=== PATIENT | male | born 1950 | race Caucasian/White ===

== ENCOUNTER 2021-03-17 16:14 | Outpatient (REF) | payer MEDICARE, SELFPAY ==
[2021-03-17 18:09] LABS: Basophils Percent Auto 0.3 % (0-2); Eosinophils Absolute Auto 0.2 X10*3/uL (0.0-0.4); Eosinophils Percent Auto 1.1 % (0-4); Hematocrit 44.8 % (42-52); Hemoglobin 15.1 g/dl (14.0-18.0); Imm Gran Abs Auto 0.09 X10*3/uL (0.00-0.03); Imm Gran Pct Auto 0.6 % (0.0-0.4); Lymphocytes Percent Auto 6.9 % (20-40); MANUAL DIFF FLAG SCAN; Mean Corpuscular HGB Conc 33.7 g/dl (31.0-36.0); Mean Corpuscular Hemoglobin 29.9 pg (27.0-33.0); Mean Corpuscular Volume 88.7 fL (80-98); Mean Platelet Volume 10.6 fL (9.4-12.4); Monocytes Absolute Auto 1.5 X10*3/uL (0.1-1.2); Monocytes Percent Auto 10.8 % (2-11); Neutrophils Absolute Auto 11.3 X10*3/uL (2.0-8.3); Neutrophils Percent Auto 80.3 % (45-73); Platelet Count 182 X10*3/uL (160-400); Red Blood Count 5.05 X10*6/uL (4.60-5.80); Red Cell Distribution Width 13.5 % (11.0-16.0); SCAN SMEAR FLAG 1; White Blood Count 14.1 X10*3/uL (4.8-10.8)
[2021-03-17 18:16] LABS: Alanine Aminotransferase 24 U/L (0-40); Albumin Level 3.8 g/dL (3.5-5.0); Alkaline Phosphatase 77 U/L (39-117); Anion Gap 13 (12-20); Aspartate Amino Transferase 23 U/L (5-37); Bilirubin Total 0.6 mg/dL (0.0-1.0); Blood Urea Nitrogen 20 mg/dL (9-16); Calcium 8.8 mg/dL (8.4-10.2); Carbon Dioxide 29 mmol/L (22-29); Chloride 99 mmol/L (96-108); Estimated Glomerular Filt Rate > 60; Glucose Random 104 mg/dL (60-115); Potassium 3.3 mmol/L (3.3-5.1); Sodium 138 mmol/L (135-145); Total Protein 6.2 g/dL (6.5-8.0)
[2021-03-17 18:19] LABS: Influenza A PCR NEGATIVE (Negative); Influenza B PCR NEGATIVE (Negative); Resp Syncy Virus RNA Qual PCR NEGATIVE (Negative); SARS COV2 PCR INHOUSE NEGATIVE (Negative)
[2021-03-17 18:36] LABS: SLIDE REVIEW VERIFIED
[2021-03-18 10:59] LABS: CDIFF Ag Negative (Negative); CDIFF Internal ctrl Dots and bkg OK (V); CDiff Toxin Negative (Negative)
== END 2021-03-17 16:15 | disposition home or self-care (01) ==
LOC: HO.LAB 16:14
PROVIDERS: PCP Internal Medicine; Visit Provider Internal Medicine
DX: R19.7 Diarrhea, unspecified (principal); N40.0 Benign prostatic hyperplasia without lower urinary tract symptoms; R53.83 Other fatigue; Z96.0 Presence of urogenital implants
CPT/HCPCS: 0241U; 36415; 80053; 85025; 87324; 87449

== ENCOUNTER 2021-05-25 14:21 | Outpatient (REF) | payer MEDICARE, SELFPAY ==
--- NOTE | ~2021-05-25 | XR_ITS ---
EXAMINATION: XR SHOULDER, LEFT CLINICAL INFORMATION: Left shoulder pain. COMPARISON: None TECHNIQUE: AP external rotation, Grashey, scapular Y, and axillary views of the left shoulder. FINDINGS: There is loss of left glenohumeral joint space. AC joint space is maintained somewhat normal. No fracture, loose bodies or periarticular spurring seen. The soft tissues are normal. XR/XR shoulder LT min 2V IMPRESSION: Minimal degenerative arthritic changes left glenohumeral joint. No visible acute fracture or dislocation seen.
== END 2021-05-25 14:22 | disposition home or self-care (01) ==
LOC: HO.XRAY 14:21
PROVIDERS: PCP Internal Medicine; Visit Provider Internal Medicine
DX: M25.512 Pain in left shoulder (principal)
CPT/HCPCS: 73030

== ENCOUNTER 2023-08-09 09:50 | Outpatient (REF) | payer MEDICARE, SELFPAY | END 2023-08-09 09:51 | disposition home or self-care (01) | LOC: HO.LAB 09:50 | PROVIDERS: PCP Internal Medicine; Visit Provider Internal Medicine | DX: N40.0 Benign prostatic hyperplasia without lower urinary tract symptoms (principal); J45.909 Unspecified asthma, uncomplicated; Z87.442 Personal history of urinary calculi; Z82.49 Family history of ischemic heart disease and other diseases of the circulatory system; Z12.5 Encounter for screening for malignant neoplasm of prostate | CPT/HCPCS: 36415; 80053; 80061; 81001; 84153; 85025 ==

== ENCOUNTER 2023-11-22 13:51 | Outpatient (REF) | payer MEDICARE, SELFPAY ==
[2023-11-22 15:32] LABS: Cholesterol 158 mg/dL (<200); HDL Cholesterol 37 mg/dL (>40); LDL Cholesterol Calculated 109 mg/dL (<100); Triglycerides 62 mg/dL (<150)
== END 2023-11-22 13:52 | disposition home or self-care (01) ==
LOC: HO.LAB 13:51
PROVIDERS: PCP Internal Medicine; Visit Provider Internal Medicine
DX: E78.00 Pure hypercholesterolemia, unspecified (principal)
CPT/HCPCS: 36415; 80061

== ENCOUNTER 2024-07-21 13:22 | Outpatient (AMB) | payer MEDICARE, SELFPAY ==
--- NOTE | 2024-07-21 13:28 | A.OFFVIS_ITS ---
Vital Signs 07/21/24 13:31 Height 5 ft 9 in Weight 167 lb 8.821 oz BMI 24.7 BP 129/66 Blood Pressure Location Lt brachial Position Sitting Pulse 62 Intake Visit Reasons: Colorectal screening Intake Note: New patient in office today for colonoscopy screening. CC: Patient denies having any GI symptoms or concerns today. Patient states that he had a Cologuard done that it came back positive. 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 Accompanied by: Self / Same As Patient Allergies cat dander [CAT DANDER] Allergy (Unknown, Verified 07/21/24 13:36) UNKNOWN dog dander [DOG DANDER] Allergy (Unknown, Verified 07/21/24 13:36) UNKNOWN feathers Allergy (Unknown, Verified 07/21/24 13:36) Unknown grass pollen Allergy (Unknown, Verified 07/21/24 13:36) Unknown levofloxacin [From LEVAQUIN] Allergy (Unknown, Verified 07/21/24 13:36) UNKNOWN mold [MOLD] Allergy (Unknown, Verified 07/21/24 13:36) UNKNOWN Penicillins [PENICILLINS] Allergy (Unknown, Verified 07/21/24 13:36) UNKNOWN pollen extracts [POLLEN] Allergy (Unknown, Verified 07/21/24 13:36) UNKNOWN tobacco smoke Allergy (Severe, Uncoded 07/21/24 13:36) asthma HPI HPI Colorectal screening: Details: 73-year-old male here for preprocedural meeting to discuss a screening colonoscopy. He is referred by richard Ramos. PMX Asthma Cardiomyopathy Presence of urinary device Nontoxic goiter Allergic rhinitis BPH Olecranon bursitis * SURGICAL HISTORY Left inguinal hernia repair Tonsillectomy TURP Colonoscopy -2003, [facility] Dermal cyst neck * ALLERGIES Levaquin Mold Penicillin * MEDITECH LABS: None since 08/2023 TODAY'S VISIT Apparently the patient had a positive Cologuard under his PCPs care. There are no prior problems with anesthesia or sedation. No ID problems. His asthma is well controlled as is his cardiomyopathy. No FHX crc or polyps. [facility] Surgical History H/O transurethral resection of prostate History of tonsillectomy H/O inguinal hernia repair H/O colonoscopy Family History Father Esophageal cancer Mother Breast cancer Brother Skin cancer Paternal Grandfather Cancer Social History Alcohol intake: former Comment: Quit 1985 Patient Tobacco Use Status: Never used Tobacco Review of Systems Const Denies fatigue, Denies fever(s), Denies night sweats, Denies poor appetite and Denies weight loss ENT Reports Normal hearing present, Denies dental pain, Denies dysphagia, Denies hearing loss, Denies mouth pain, Denies odynophagia, Denies throat swelling, Denies tongue swelling and Reports other (Dentition adequate) Card Reports no additional complaints Resp Reports no additional complaints GI Details: Denies abdominal pain, Denies melena, Denies bloating, Denies hematochezia, Denies constipation, Denies GI cramping, Denies dysphagia, Denies excessive flatus, Denies early satiety, Denies heartburn, Denies diarrhea, Denies nausea, Denies odynophagia, Denies vomiting and Denies hematemesis Skin/Breast Denies pruritus, Denies lesions, Denies rash and Denies jaundice Neuro Reports Normal hearing present and Denies Abnormal speech present Endo Denies fatigue Aller/Immun Denies throat swelling and Denies tongue swelling Physical Exam Vital Signs: Last Vital Signs Pulse 62 07/21/24 13:31 BP 129/66 07/21/24 13:31 BMI result Body Mass Index 24.7 Const General: cooperative, no acute distress, well developed and well groomed Nutritional Appearance: average body habitus and well nourished Orientation/consciousness: oriented to person, oriented to place and oriented to time Limitations: No language barrier HEENT Head: Yes normocephalic and Yes atraumatic Eyes General: appearance normal, both eyes and all related structures Pupils: Equal, round and reactive pupils present Neck Neck: Yes normal visual inspection and Yes no lymphadenopathy Thyroid: Thyroid normal Resp Effort & Inspection: normal respiratory effort and able to speak in complete sentences Auscultation: clear to auscultation bilaterally Cardio Rate: regular rate Rhythm: regular rhythm Heart sounds: Normal, physiologic split S2 sound present Peripheral pulses: radial pulses present and posterior tibial pulses present GI Inspection: No distended and No Abdominal panniculus present Palpation (GI): Soft to palpation, nontender, no guarding, not rigid and No hepatosplenomegaly present Percussion: Yes normal to percussion Auscultation: normal bowel sounds Rectal Exam - Male: Yes deferred Skin General skin exam: no rashes or lesions noted, turgor normal, skin not dry, no jaundice, No spider nevi and no striae Rashes: no rashes Nails: normal Neuro General: oriented to person, oriented to place and oriented to time Cranial nerves: Yes Equal, round and reactive pupils present and Yes Normal hearing present Speech: No Abnormal speech present Extrem General: Yes normal to inspection, No clubbing, No cyanosis and No edema Psych Appearance: grossly normal and well kempt Mental Status: mental status grossly normal Speech and movement: Normal speech and movement present Affect: normal affect Attitude: cooperative Thought process: Normal thought process present and not confabulating Thought content: Normal thought content present Insight: Fair insight present (Psych) Judgement: Fair judgement present (Psych) Assessment & Plan Assessment & Plan (1) Positive colorectal cancer screening using DNA-based stool test: Code(s): R19.5 - Other fecal abnormalities (2) Pre-op examination: Code(s): Z01.818 - Encounter for other preprocedural examination Category: Medical Plan Apparently the patient had a positive Cologuard under his PCPs care. There are no prior problems with anesthesia or sedation. No ID problems. His asthma is well controlled as is his cardiomyopathy. No FHX crc or polyps. Orders: Orders Comprehensive Met. Panel 07/21/24 R19.5 - Other fecal abnormalities Complete Blood Count Auto Diff 07/21/24 R19.5 - Other fecal abnormalities Colonoscopy - GI Use Only 07/21/24 R19.5 - Other fecal abnormalities Medications: New bisacodyl (Dulcolax (bisacodyl)) 10 mg (2 x 5 mg) PO BEDTIME 4 tabs 0RF 2 days peg 3350-electrolytes 236-22.74-6.74 -5.86 gram (Golytely) until fecal effluent is clear; do not exceed a total volume of 2,000 mL 240 mL PO Q10M 4,000 mL 0RF 1 day Z12.11 - Encounter for screening for malignant neoplasm of colon Coding Level of Care Code New Pt Level 3 (14086) Diagnoses Positive colorectal cancer screening using DNA-based stool test R19.5 Pre-op examination Z01.818
[2024-07-21 13:31] VITALS: BP 129/66; PULSE 62; BMI 24.7
== END 2024-07-21 14:30 | disposition home or self-care (01) ==
PROVIDERS: PCP Internal Medicine; Visit Provider Nurse Practitioner
DX: R19.5 Other fecal abnormalities (principal); Z01.818 Encounter for other preprocedural examination
CPT/HCPCS: 99203

== ENCOUNTER 2024-07-21 13:22 | Outpatient (REF) | payer MEDICARE, SELFPAY ==
[2024-07-21 14:58] LABS: MANUAL DIFF FLAG NO
[2024-07-21 15:14] LABS: Basophils Absolute Auto 0.1 X10*3/uL (0.0-0.2); Basophils Percent Auto 0.9 % (0-2); Eosinophils Absolute Auto 0.6 X10*3/uL (0.0-0.4); Hematocrit 45.3 % (42.0-52.0); Imm Gran Abs Auto 0.01 X10*3/uL (0.00-0.03); Imm Gran Pct Auto 0.2 % (0.0-0.4); Lymphocytes Absolute Auto 1.4 X10*3/uL (1.2-4.9); Lymphocytes Percent Auto 25.5 % (20-40); Mean Corpuscular HGB Conc 33.1 g/dl (31.0-36.0); Mean Corpuscular Hemoglobin 30.1 pg (27.0-33.0); Mean Platelet Volume 10.6 fL (9.4-12.4); Monocytes Absolute Auto 0.6 X10*3/uL (0.1-1.2); Monocytes Percent Auto 10.9 % (2-11); Neutrophils Absolute Auto 2.8 x10*3/uL (2.0-8.3); Neutrophils Percent Auto 51.5 % (45-73); Platelet Count 164 X10*3/uL (160-400); Red Blood Count 4.98 X10*6/uL (4.60-5.80); Red Cell Distribution Width 12.9 % (11.0-16.0); White Blood Count 5.3 X10*3/uL (4.8-10.8)
[2024-07-21 15:53] LABS: Alanine Aminotransferase 19 U/L (0-40); Alkaline Phosphatase 102 U/L (39-117); Anion Gap 9 (12-20); Aspartate Amino Transferase 25 U/L (5-37); Bilirubin Total 0.8 mg/dL (0.0-1.0); Blood Urea Nitrogen 17 mg/dL (9-16); Calcium 9.6 mg/dL (8.4-10.2); Carbon Dioxide 31 mmol/L (22-29); Chloride 106 mmol/L (96-108); Estimated Glomerular Filt Rate > 60; Glucose Random 100 mg/dL (60-115); Potassium 4.5 mmol/L (3.3-5.1); Sodium 141 mmol/L (135-145); Total Protein 6.5 g/dL (6.5-8.0)
== END 2024-07-21 13:23 | disposition home or self-care (01) ==
LOC: HO.LAB 13:22
PROVIDERS: PCP Internal Medicine; Visit Provider Nurse Practitioner
DX: Z01.818 Encounter for other preprocedural examination (principal); R19.5 Other fecal abnormalities
CPT/HCPCS: 36415; 80053; 85025; 99202

== ENCOUNTER 2024-08-14 13:59 | Outpatient (REF) | payer MEDICARE, SELFPAY ==
--- NOTE | ~2024-08-14 | XR_ITS ---
EXAMINATION: XR CERVICAL SPINE 6 VIEWS CLINICAL INFORMATION: Neck pain. COMPARISON: XR Cervical spine 05/18/2010 TECHNIQUE: 6 views of the cervical spine, inclusive of flexion and extension views, were obtained. FINDINGS: The cervical spine maintains normal alignment. Vertebral body heights are maintained. There is loss of intervertebral disc space with endplate degenerative changes, particularly at C4-C5 and C5-C6. Multilevel bilateral foraminal stenosis throughout the cervical spine. The paravertebral soft tissues are unremarkable. XR/XR cervical spine min 6V IMPRESSION: Moderate degenerative disease of the cervical spine. Electronically signed by: Nargis Aguilar MD 10/20/2024 08:13 AM [facility] Workstation: [id number]
== END 2024-08-14 14:00 | disposition home or self-care (01) ==
LOC: HO.XRAY 13:59
PROVIDERS: PCP Internal Medicine; Visit Provider Internal Medicine
DX: M54.2 Cervicalgia (principal)
CPT/HCPCS: 72052

== ENCOUNTER 2024-08-27 14:56 | Outpatient (REF) | payer MEDICARE, SELFPAY ==
[2024-08-27 15:16] LABS: MANUAL DIFF FLAG NO
[2024-08-27 15:47] LABS: Basophils Absolute Auto 0.1 X10*3/uL (0.0-0.2); Basophils Percent Auto 0.9 % (0-2); Eosinophils Absolute Auto 0.6 X10*3/uL (0.0-0.4); Eosinophils Percent Auto 8.6 % (0-4); Hematocrit 44.8 % (42.0-52.0); Hemoglobin 15.2 g/dl (14.0-18.0); Imm Gran Abs Auto 0.01 X10*3/uL (0.00-0.03); Imm Gran Pct Auto 0.2 % (0.0-0.4); Lymphocytes Absolute Auto 1.5 X10*3/uL (1.2-4.9); Lymphocytes Percent Auto 22.1 % (20-40); Mean Corpuscular HGB Conc 33.9 g/dl (31.0-36.0); Mean Corpuscular Hemoglobin 30.2 pg (27.0-33.0); Mean Corpuscular Volume 89.1 fL (80.0-98.0); Mean Platelet Volume 10.7 fL (9.4-12.4); Monocytes Absolute Auto 0.8 X10*3/uL (0.1-1.2); Monocytes Percent Auto 11.4 % (2-11); Neutrophils Absolute Auto 3.8 x10*3/uL (2.0-8.3); Neutrophils Percent Auto 56.8 % (45-73); Platelet Count 176 X10*3/uL (160-400); Red Blood Count 5.03 X10*6/uL (4.60-5.80); Red Cell Distribution Width 12.9 % (11.0-16.0); White Blood Count 6.6 X10*3/uL (4.8-10.8)
[2024-08-27 15:51] LABS: Appearance Urine Clear; Color Urine Yellow; Glucose Urine UA Negative (Negative); Leukocyte Esterase Urine Small (1+) (Negative); Nitrite Urine Negative (Negative); PH 6.5 (5.0-9.0); UMIC TRIGGER UA YES; Urine Blood Negative (Negative); Urine Ketones Negative (Negative); Urine Protein Negative (Neg-Trace)
[2024-08-27 15:54] LABS: Bacteria Urine None Seen (None Seen); Hyaline Casts Urine 0-2 /LPF (0-2); RBC Urine 0-2 /HPF (0-2); Squamous Epithelial Cell Urine 0-2 /HPF (0-2)
[2024-08-27 16:37] LABS: Alanine Aminotransferase 22 U/L (0-40); Alkaline Phosphatase 101 U/L (39-117); Anion Gap 11 (12-20); Aspartate Amino Transferase 30 U/L (5-37); Bilirubin Total 0.9 mg/dL (0.0-1.0); Blood Urea Nitrogen 20 mg/dL (9-16); Calcium 9.7 mg/dL (8.4-10.2); Carbon Dioxide 32 mmol/L (22-29); Chloride 105 mmol/L (96-108); Cholesterol 167 mg/dL (<200); Estimated Glomerular Filt Rate > 60; Glucose Random 101 mg/dL (60-115); HDL Cholesterol 49 mg/dL (>40); LDL Cholesterol Calculated 102 mg/dL (<100); Sodium 143 mmol/L (135-145); Total Protein 6.7 g/dL (6.5-8.0); Triglycerides 81 mg/dL (<150)
[2024-08-27 17:06] LABS: Prostate Specific Antigen 1.56 ng/mL (<0.05-4.0); Vitamin B12 462 pg/mL (200-900)
== END 2024-08-27 14:57 | disposition home or self-care (01) ==
LOC: HO.LAB 14:56
PROVIDERS: PCP Internal Medicine; Visit Provider Internal Medicine
DX: J45.909 Unspecified asthma, uncomplicated (principal); N40.0 Benign prostatic hyperplasia without lower urinary tract symptoms; R53.83 Other fatigue; I25.10 Atherosclerotic heart disease of native coronary artery without angina pectoris; Z12.5 Encounter for screening for malignant neoplasm of prostate
CPT/HCPCS: 36415; 80053; 80061; 81001; 82550; 82607; 84153; 85025; 86140

== ENCOUNTER 2024-12-29 19:37 | Emergency (ER) | payer MEDICARE, SELFPAY ==
--- NOTE | ~2024-12-29 | CT_ITS ---
CLINICAL HISTORY: fall with head strike CT head without contrast Comparison: None Findings: No intra-axial mass, midline shift, hydrocephalus, or acute hemorrhage. No significant atrophy-like change or white matter disease. Intracranial atherosclerosis. Mucosal thickening in the maxillary sinuses and ethmoid air cells. The orbits are within normal limits. There is no acute fracture. IMPRESSION: 1. No acute intracranial findings. This document has been electronically signed by: Kassie Yang MD on 12/29/2024 21:51:38
--- NOTE | ~2024-12-29 | XR_ITS ---
CLINICAL HISTORY: fall, limited ROM 3 view left shoulder Comparison: CR - XR SHOULDER LT MIN 2V - 05/25/2021 02:43 PM EDT Findings: Bones intact. No dislocations. Mild acromioclavicular osteoarthritis. No erosions. No radiopaque foreign body. IMPRESSION: 1. No acute findings This document has been electronically signed by: Kassie Yang MD on 12/29/2024 20:41:04
--- NOTE | ~2024-12-29 | CT_ITS ---
CLINICAL HISTORY: fall with head strike CT maxillofacial without contrast Comparison: None Findings: No acute fractures. No dislocations. Temporomandibular joints are intact. Mucosal thickening in the maxillary sinuses and ethmoid air cells, left worse than right. Orbital contents within normal limits. Visualized intracranial contents are within normal limits. No foreign bodies. IMPRESSION: 1. No acute findings. This document has been electronically signed by: Kassie Yang MD on 12/29/2024 21:49:50
--- NOTE | ~2024-12-29 | XR_ITS ---
CLINICAL HISTORY: fall, limited ROM 3 view left elbow Comparison: None Findings: No acute fractures or dislocations. No significant loss of joint space, osteophytes, or erosions. No joint effusion. No radiopaque foreign body. IMPRESSION: 1. No acute findings This document has been electronically signed by: Kassie Yang MD on 12/29/2024 20:43:02
[2024-12-29 20:02] VITALS: BP 136/58; PULSE 59; RESP 14; TEMP 36.3; O2SAT 99; BMI 25.8
--- NOTE | 2024-12-29 20:05 | ED.GENADULT ---
HPI - General Adult General Chief complaint: Fall Stated complaint: fell on ice couple days/lft arm pain/lft ear echos Time Seen by Provider: 12/29/24 23:59 Source: patient Limitations: no limitations History of Present Illness ED Provider: Luna Kiser PA-C HPI narrative: 74-year-old male with a history of BPH, cardiomyopathy, asthma, kidney stones who presents after fall. Patient states he was going to get his mail, he subsequently slipped and fell, striking his head. There was no loss consciousness, the patient is not on a blood thinner. patient states he had minimal bleeding from his nose. The patient has a associated left elbow and shoulder pain. The patient was ambulatory, he drove himself to the emergency department. Related Data Home Medications ?Medication ?Instructions ?Recorded ?Confirmed albuterol sulfate 90 mcg/actuation 2 inh inhalation Q6-8H PRN 07/21/24 11/17/24 aerosol inhaler Shortness Of Breath Or Wheezing Previous Rx's ?Medication ?Instructions ?Recorded bisacodyl 5 mg tablet,delayed 20 mg (4 x 5 mg) PO ONCE 1 day #4 11/19/24 release (Dulcolax (bisacodyl)) tabs peg 3350-electrolytes 236 240 ml PO Q10M #4,000 mL 11/19/24 gram-22.74 gram-6.74 gram-5.86 gram solution Allergies Allergy/AdvReac Type Severity Reaction Status Date / Time cat dander [CAT DANDER] Allergy Unknown UNKNOWN Verified 12/29/24 20:08 dog dander [DOG DANDER] Allergy Unknown UNKNOWN Verified 12/29/24 20:08 feathers Allergy Unknown Unknown Verified 12/29/24 20:08 grass pollen Allergy Unknown Unknown Verified 12/29/24 20:08 levofloxacin [From LEVAQUIN] Allergy Unknown UNKNOWN Verified 12/29/24 20:08 mold [MOLD] Allergy Unknown UNKNOWN Verified 12/29/24 20:08 Penicillins [PENICILLINS] Allergy Unknown UNKNOWN Verified 12/29/24 20:08 pollen extracts [POLLEN] Allergy Unknown UNKNOWN Verified 12/29/24 20:08 tobacco smoke Allergy Severe asthma Uncoded 12/29/24 20:08 Review of Systems Review of Systems: Yes all other systems are reviewed and are negative Constitutional: Constitutional: Denies fatigue, Denies fever(s) and Denies headache(s) ENT: Denies dizziness, Denies headache(s) and Denies neck pain Cardiovascular: Cardiovascular: Denies chest pain, Denies syncope and Denies dyspnea Respiratory: Respiratory: Denies cough and Denies dyspnea Gastrointestinal: Gastrointestinal: Denies abdominal pain Musculoskeletal: Musculoskeletal: Denies back pain and Denies neck pain Neurologic: Denies dizziness, Denies syncope and Denies headache(s) Endocrine: Endocrine: Denies fatigue PMFSH Past Medical History Attestation statement: The following information was validated with the patient. Surgical History H/O transurethral resection of prostate History of tonsillectomy H/O inguinal hernia repair H/O colonoscopy Family History Family History Father Esophageal cancer Mother Breast cancer Brother Skin cancer Paternal Grandfather Cancer Social History Social History Are you a primary student career development specialist to a significant other at home: No Do you presently have visiting nurse or other home services: No Alcohol intake: former Comment: Quit 1986 Patient Tobacco Use Status: Never used Tobacco Smoked in Last 30 Days: No Use of substances other than those prescribed or required for medical reasons: No Advance Directives: No Do you have a plan to hurt others: No Plan Physical Exam ED Vital Signs: Vital Signs - 24 hr 12/29/24 20:02 12/30/24 00:19 Temperature 97.4 F 97.9 F Pulse Rate 59 69 Respiratory Rate 14 14 Blood Pressure 136/58 L 135/73 Pulse Oximetry 99 100 Oxygen Delivery Method Room Air Room Air BMI result Body Mass Index 25.8 Const Other: Alert well-appearing no sign of head trauma on exam Orientation/consciousness: patient oriented x3 Resp Effort & Inspection: normal respiratory effort Cardio Other: normal peripheral perfusion Skin Other: warm dry no rash Neuro General: patient oriented x3, gait normal, no focal motor deficits and CN's II-XI intact bilaterally Extrem Other: able to flex and extend from the elbow, full range of motion of the shoulder no deformity Psych Other: cooperative Course Course Course Narrative: This is a rapid medical exam performed by Carola Munoz NP: Additional HPI, ROS, PE not included below will be deferred to primary provider. Patient is a 74-year-old male presenting with complaint of ongoing left cheek and left shoulder/arm pain after a fall on 12/21. Denies loss of consciousness, is not anticoagulated. Reports decreased ROM to shoulder. Had tinnitus to left ear which he states has now changed to an echo sensation. Plan: CT head and facial bones, shoulder xray, elbow xray Medical Decision Making Medical Decision Making MDM Narrative: 74-year-old male with a history of BPH, cardiomyopathy, asthma, kidney stones who presents after fall. Patient states he was going to get his mail, he subsequently slipped and fell, striking his head/face. There was no loss consciousness, the patient is not on a blood thinner. patient states he had minimal bleeding from his nose. The patient has a associated left elbow and shoulder pain. The patient was ambulatory, he drove himself to the emergency department. no relevant chronic issues History: Per patient I have considered the following differential diagnoses: Fracture, dislocation, intracranial hemorrhage, Facial bone fracture Plan: X-rays of the shoulder and elbow, CT scans of the brain and max face were obtained from triage. Everything is unremarkable. I have independently reviewed the following tests: X-ray left elbow: 3 view left elbow Comparison: None Findings: No acute fractures or dislocations. No significant loss of joint space, osteophytes, or erosions. No joint effusion. No radiopaque foreign body. IMPRESSION: 1. No acute findings X-ray left shoulder: 3 view left shoulder Comparison: CR - XR SHOULDER LT MIN 2V - 05/25/2021 02:43 PM EDT Findings: Bones intact. No dislocations. Mild acromioclavicular osteoarthritis. No erosions. No radiopaque foreign body. IMPRESSION: 1. No acute findings CT brain: Findings: No intra-axial mass, midline shift, hydrocephalus, or acute hemorrhage. No significant atrophy-like change or white matter disease. Intracranial atherosclerosis. Mucosal thickening in the maxillary sinuses and ethmoid air cells. The orbits are within normal limits. There is no acute fracture. IMPRESSION: 1. No acute intracranial findings. CT Max face::Findings: No acute fractures. No dislocations. Temporomandibular joints are intact. Mucosal thickening in the maxillary sinuses and ethmoid air cells, left worse than right. Orbital contents within normal limits. Visualized intracranial contents are within normal limits. No foreign bodies. IMPRESSION: 1. No acute findings. Discharge Plan Discharge Clinical Impression: Contusion Patient Disposition: Home, Self-Care Instructions: Bone Bruise (ED) Additional Instructions: x-ray of the shoulder and elbow were negative for fracture or dislocation. The CT scan of your brain was negative for intracranial bleeding or skull fracture. The CT scan of your face was negative for fracture. You have sustained a contusion. See home care instructions. Follow up with your primary care provider as needed. Prescriptions: No Action bisacodyl [Dulcolax (bisacodyl)] 5 mg tablet,delayed release (DR/EC) 20 mg PO ONCE 1 Days Qty: 4 0RF Rx Instructions: the day before colonoscopy take 2 pills at 12pm and 2 pills at 5pm with plenty of water peg 3350-electrolytes 236-22.74-6.74 -5.86 gram recon soln 240 ml PO Q10M Qty: 4000 0RF Rx Instructions: until fecal effluent is clear albuterol sulfate 90 mcg/actuation HFA aerosol inhaler 2 inh inhalation Q6-8H PRN (Reason: Shortness Of Breath Or Wheezing) Print Language: Romanian
[2024-12-30 00:19] VITALS: BP 135/73; PULSE 69; RESP 14; TEMP 36.6; O2SAT 100
[2024-12-30 01:17] VITALS: BP 135/73; PULSE 69; RESP 14; TEMP 36.6; O2SAT 100
== END 2024-12-30 01:18 | disposition home or self-care (01) ==
PROVIDERS: Emergency Provider Emergency Medicine Emergency Medical Services; PCP Internal Medicine
DX: S50.02XA Contusion of left elbow, initial encounter (principal); S00.93XA Contusion of unspecified part of head, initial encounter; M79.602 Pain in left arm; H92.02 Otalgia, left ear; R51.9 Headache, unspecified; M25.512 Pain in left shoulder; W01.0XXA Fall on same level from slipping, tripping and stumbling without subsequent striking against object, initial encounter; Y93.01 Activity, walking, marching and hiking; Y92.59 Other trade areas as the place of occurrence of the external cause; Y99.8 Other external cause status; Z79.899 Other long term (current) drug therapy
CPT/HCPCS: 70450; 70486; 73030; 73070; 99284

== ENCOUNTER → 2024-12-29 20:07 | Outpatient (BNV) | payer MEDICARE, SELFPAY | PROVIDERS: PCP Internal Medicine; Visit Provider Radiology Diagnostic Radiology | DX: S09.92XA Unspecified injury of nose, initial encounter (principal); M25.512 Pain in left shoulder; M25.522 Pain in left elbow; S09.90XA Unspecified injury of head, initial encounter; H93.2 Other abnormal auditory perceptions; W00.0XXA Fall on same level due to ice and snow, initial encounter | CPT/HCPCS: 70450; 70486; 73030; 73070 ==

== ENCOUNTER 2025-01-06 11:02 | Day surgery (SDC) | payer MEDICARE, SELFPAY ==
--- NOTE | 2025-01-05 12:08 | P.CONAN_ITS ---
Documented by User: Dipika Dave NP 01/05/25 12:09 HPI - Anesthesia Eval Consult details Narrative: 74yo M for Colonoscopy PMHx includes cardiomyopathy. Does not follow cardiology. ECHO 2017 ordered by PCP [facility]NL. [facility] Active Problems Active Problems: All Active Problems Nephrolithiasis (Acute) Olecranon bursitis (Acute) Allergic rhinitis (Acute) Nontoxic goiter (Acute) BPH (benign prostatic hyperplasia) (Acute) Cardiomyopathy (Acute) Asthma (Acute) Positive colorectal cancer screening using Cologuard test (Acute) Pre-op examination (Acute) Past Medical History Medical History Anxiety BPH (benign prostatic hyperplasia) Asthma Cardiomyopathy Nontoxic goiter Family History Family History Father Esophageal cancer Mother Breast cancer Brother Skin cancer Paternal Grandfather Cancer Surgical History Surgical History H/O lithotripsy S/P TURP H/O left inguinal hernia repair H/O transurethral resection of prostate History of tonsillectomy H/O inguinal hernia repair H/O colonoscopy Social History Social History Are you a primary pharmacist critical care to a significant other at home: No Do you presently have visiting nurse or other home services: No Alcohol intake: former Comment: Quit 1985 Patient Tobacco Use Status: Never used Tobacco Meds Allergies Allergy/AdvReac Type Severity Reaction Status Date / Time cat dander [CAT DANDER] Allergy Unknown UNKNOWN Verified 12/29/24 20:08 dog dander [DOG DANDER] Allergy Unknown UNKNOWN Verified 12/29/24 20:08 feathers Allergy Unknown Unknown Verified 12/29/24 20:08 grass pollen Allergy Unknown Unknown Verified 12/29/24 20:08 levofloxacin [From LEVAQUIN] Allergy Unknown UNKNOWN Verified 12/29/24 20:08 mold [MOLD] Allergy Unknown UNKNOWN Verified 12/29/24 20:08 Penicillins [PENICILLINS] Allergy Unknown UNKNOWN Verified 12/29/24 20:08 pollen extracts [POLLEN] Allergy Unknown UNKNOWN Verified 12/29/24 20:08 tobacco smoke Allergy Severe asthma Uncoded 12/29/24 20:08 Home Medications ?Medication ?Instructions ?Recorded ?Confirmed ?Last Taken ?Type albuterol sulfate 90 mcg/actuation 2 inh inhalation Q6-8H PRN 07/21/24 11/17/24 Unknown History aerosol inhaler Shortness Of Breath Or Wheezing Assessment and Plan Assessment Anesthesia Assessment: Chart Reviewed Documented by User: Natalia Wiggins MD 01/06/25 13:37 PMFSH Active Problems Active Problems: All Active Problems Nephrolithiasis (Acute) Olecranon bursitis (Acute) Allergic rhinitis (Acute) Nontoxic goiter (Acute) BPH (benign prostatic hyperplasia) (Acute) Cardiomyopathy (Acute) Asthma (Acute) Positive colorectal cancer screening using Cologuard test (Acute) Pre-op examination (Acute) ? H/o fluid in lungs- vague history. Patient states ok now Fell 2 weeks ago. Left sided pain. Pain Left shoulder and arm. No fracture on Xray Past Medical History Medical History Anxiety BPH (benign prostatic hyperplasia) Asthma Cardiomyopathy Nontoxic goiter Family History Family History Father Esophageal cancer Mother Breast cancer Brother Skin cancer Paternal Grandfather Cancer Family history of problems with anesthesia: No Surgical History Surgical History H/O lithotripsy S/P TURP H/O left inguinal hernia repair H/O transurethral resection of prostate History of tonsillectomy H/O inguinal hernia repair H/O colonoscopy History of Problems with Anesthesia: No Social History Social History Are you a primary pharmacist critical care to a significant other at home: No Do you presently have visiting nurse or other home services: No Alcohol intake: former Comment: Quit 1985 Patient Tobacco Use Status: Never used Tobacco Meds Allergies Allergy/AdvReac Type Severity Reaction Status Date / Time cat dander [CAT DANDER] Allergy Unknown UNKNOWN Verified 12/29/24 20:08 dog dander [DOG DANDER] Allergy Unknown UNKNOWN Verified 12/29/24 20:08 feathers Allergy Unknown Unknown Verified 12/29/24 20:08 grass pollen Allergy Unknown Unknown Verified 12/29/24 20:08 levofloxacin [From LEVAQUIN] Allergy Unknown UNKNOWN Verified 12/29/24 20:08 mold [MOLD] Allergy Unknown UNKNOWN Verified 12/29/24 20:08 Penicillins [PENICILLINS] Allergy Unknown UNKNOWN Verified 12/29/24 20:08 pollen extracts [POLLEN] Allergy Unknown UNKNOWN Verified 12/29/24 20:08 tobacco smoke Allergy Severe asthma Uncoded 12/29/24 20:08 Home Medications ?Medication ?Instructions ?Recorded ?Confirmed ?Last Taken ?Type albuterol sulfate 90 mcg/actuation 2 inh inhalation Q6-8H PRN 07/21/24 11/17/24 Unknown History aerosol inhaler Shortness Of Breath Or Wheezing Exam Height,Weight and Vital Signs: Height 5 ft 11 in Weight 82.1 kg Vital Signs Temp Pulse Resp BP Pulse Ox O2 Del Method 01/06/25 12:10 97.5 F 75 16 133/89 98 Room Air Airway Mallampati Class: II (Slghtly receding chin) TM Dist: >3cm Neck ROM: Full Loose/Missing/Broken Teeth: Yes (Missing molars. Denies broken or loose teeth) Heart: RRR Lungs: CTAB Assessment and Plan Assessment Anesthesia Assessment: Anesthesia Plan Discussed and Chart Reviewed Final Anesthetic Review Family History of Problems with Anesthesia: No History of Problems with Anesthesia: No NPO: Yes ASA Class: III Final Preanesthetic Review: No Changes in Pt Med Stat, Meds/Allgs Chart Reviewed, Consent Obtained/Reviewed and Anes Risks/Benef Reviewed Patient Risk: Intermediate Procedure Risk: Low Assessment/Block/Sedation in SS: Assess/Block/Sedation-SS Anesthetic Plan Anesthetic Plan: TIVA Disposition: Standard PACU
[2025-01-06 11:45] VITALS: BMI 25.2
[2025-01-06 12:10] VITALS: BP 133/89; PULSE 75; RESP 16; TEMP 36.4; O2SAT 98
[2025-01-06] MEDS: Lactated Ringers 1,000 ML 100 ML IVCONT (12:14)
--- NOTE | 2025-01-06 12:29 | P.HPSUR_ITS ---
Pre-Procedural Eval Section A - 24 Hr Update-Section A only Date of Service: 01/06/25 Section B - Complete if H&P > 30 days Chief Complaint: Other fecal abnormalities Relevant Family History (Specify if Yes): No Relevant Social History: None Present Medications: see Short Stay Collaborative assessment Medical History: Significant History (Anxiety BPH (benign prostatic hyperplasia) Asthma Cardiomyopathy Nontoxic goiter) History of Previous Operations: Relevant previous surgery/procedure and date(s) (H/O lithotripsy S/P TURP H/O left inguinal hernia repair H/O transurethral re section of prostate History of tonsillectomy H/O inguinal hernia repair H/O colonoscopy) Allergies: Allergies Allergy/AdvReac Type Severity Reaction Status Date / Time cat dander [CAT DANDER] Allergy Unknown UNKNOWN Verified 12/29/24 20:08 dog dander [DOG DANDER] Allergy Unknown UNKNOWN Verified 12/29/24 20:08 feathers Allergy Unknown Unknown Verified 12/29/24 20:08 grass pollen Allergy Unknown Unknown Verified 12/29/24 20:08 levofloxacin [From LEVAQUIN] Allergy Unknown UNKNOWN Verified 12/29/24 20:08 mold [MOLD] Allergy Unknown UNKNOWN Verified 12/29/24 20:08 Penicillins [PENICILLINS] Allergy Unknown UNKNOWN Verified 12/29/24 20:08 pollen extracts [POLLEN] Allergy Unknown UNKNOWN Verified 12/29/24 20:08 tobacco smoke Allergy Severe asthma Uncoded 12/29/24 20:08 Review of Systems Sugical H&P ROS: Negative: Constitution, Cardiovascular, Respiratory, Neurological, Psychiatric, Hem-Onc, Allergic/Immunologic, Gastrointestinal, Genitourinary, Musculoskeletal, Integumentary, Endocrine and Eyes/Ears/Nose/Throat Exam Surgical H&P Exam: Normal: HEENT, Normal: Heart, Normal: Lungs, Normal: Extremities, Normal: Abdomen, Normal: Skin and Normal: Neurological Plan Diagnosis/Plan: Unchanged I have reviewed the history and physical and performed a pertinent physical examination on my patient. No changes have occurred unless specified. Time Spent With Patient Time: Total time managing care of this patient today ____ minutes.
--- NOTE | 2025-01-06 13:16 | P.OPN-COLO_ITS ---
Colonoscopy Operative Note Operative Note Date of Service: 01/06/25 Narrative: Operative Information Procedure Description: Colonoscopy Indication: cologuard pos Anesthesia: MAC COLONOSCOPY Instrument: Olympus variable stiffness pediatric scope 190L Colonoscopy Monitoring: Vital signs and clinical assessment, continuous EKG monitoring, Pulse oximetry, Carbon Dioxide monitoring and blood pressure monitoring were done throughout the procedure. Colon withdrawal time was 12 minutes. Procedure: The patient was placed in the left lateral decubitis position and pre-procedure medications were administered. After a digital rectal examination of the ano-rectum, the video colonoscope was inserted into the rectum and advanced through the colon to the cecum/TI. The colonoscope was slowly withdrawn in a retrograde panoramic fashion and the colon mucosa was carefully examined including a retroflexed view of the rectum. Findings and interventions are described below. Procedure Difficulty: moderate, pressure applied, tortuous colon Findings: Terminal Ileum-normal Cecum:normal Ascending Colon: normal Transverse Colon -normal Descending Colon: semi pedunculated polyp 8-10 mm removed with cold snare Sigmoid Colon: moderate diverticulosis Rectum: Retroflexion with small internal hemorrhoids seen, grade I, 10 mm sessile polyp removed with cold snare f Anorectum - normal Intervention: cold snare Colon preparation: Hackberry Bowel Preparation Scale Right colon; 2 Transverse colon: 2 Left colon; 2 (0 = Unprepared colon segment with mucosa not seen due to solid stool that cannot be cleared. 1 = Portion of mucosa of the colon segment seen, but other areas of the colon segment not well seen due to staining, residual stool and/or opaque liquid. 2 = Minor amount of residual staining, small fragments of stool and/or opaque liquid, but mucosa of colon segment seen well. 3 = Entire mucosa of colon segment seen well with no residual staining, small fragments of stool or opaque liquid) Impression and Post Procedure Diagnosis: diverticulosis colon polyps x2 internal hemorrhoids Plan: High fiber diet leaflet Avoid straining at stool, epsom salts and sitz bath, anusol supps or cream Repeat Colonoscopy in 5 years if adenomatous polyps, 10 yrs if hyperplastic if health allows and patient desires or earlier if clinically indicated Above findings were reviewed with the patient and relevant handouts were provided if indicated.
[2025-01-06 13:23] VITALS: BP 111/57; PULSE 73; RESP 12; TEMP 36.5
[2025-01-06 13:38] VITALS: BP 141/69; PULSE 70; RESP 18; TEMP 36.6; O2SAT 98
== END 2025-01-06 14:08 | disposition home or self-care (01) ==
PROVIDERS: PCP Internal Medicine; Visit Provider Internal Medicine Gastroenterology
PROC: 0DJD8ZZ Inspection of Lower Intestinal Tract, Via Natural or Artificial Opening Endoscopic (ICD-10-PCS; CPT 45378; principal; 2025-01-06 13:00)
DX: K63.5 Polyp of colon (principal); K62.1 Rectal polyp; K56.2 Volvulus; K57.30 Diverticulosis of large intestine without perforation or abscess without bleeding; K64.0 First degree hemorrhoids; R19.5 Other fecal abnormalities; J45.909 Unspecified asthma, uncomplicated
CPT/HCPCS: 45385; 88305; J2003; J2704

== ENCOUNTER → 2025-01-06 11:02 | Outpatient (BNV) | payer MEDICARE, SELFPAY | PROVIDERS: PCP Internal Medicine; Visit Provider Internal Medicine Gastroenterology | DX: Z12.11 Encounter for screening for malignant neoplasm of colon (principal); R19.5 Other fecal abnormalities; K63.5 Polyp of colon; K57.30 Diverticulosis of large intestine without perforation or abscess without bleeding | CPT/HCPCS: 45385 ==

== ENCOUNTER 2025-02-24 09:01 | Outpatient (AMB) | payer MEDICARE, SELFPAY ==
[2025-02-24 09:03] VITALS: BP 128/70; PULSE 81; TEMP 36.1; O2SAT 99; BMI 27.1
--- NOTE | 2025-02-24 09:03 | A.OFFPC_ITS ---
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: No Accompanied by: Self / Same As Patient Allergies cat dander [CAT DANDER] Allergy (Unknown, Verified 02/24/25 09:43) UNKNOWN dog dander [DOG DANDER] Allergy (Unknown, Verified 02/24/25 09:43) UNKNOWN feathers Allergy (Unknown, Verified 02/24/25 09:43) Unknown grass pollen Allergy (Unknown, Verified 02/24/25 09:43) Unknown levofloxacin [From LEVAQUIN] Allergy (Unknown, Verified 02/24/25 09:43) UNKNOWN mold [MOLD] Allergy (Unknown, Verified 02/24/25 09:43) UNKNOWN Penicillins [PENICILLINS] Allergy (Unknown, Verified 02/24/25 09:43) UNKNOWN pollen extracts [POLLEN] Allergy (Unknown, Verified 02/24/25 09:43) UNKNOWN tobacco smoke Allergy (Severe, Uncoded 02/24/25 09:43) asthma Medication List - Last Reconciled 02/24/25 by Tay Alarcon MD albuterol sulfate 90 mcg/actuation 2 inhalations inhalation Q6-8H PRN Tobacco use date assessed: 02/24/25 Fall risk assessment: 1 Fall in past year Last assessed Fall Risk: 02/24/25 Dental Screening Dental Screen Date: 02/24/25 Did you have a dental visit in the last 12 months?: Yes Did you have a dental problem in the last 6 months where you did not have access to dental care?: No [facility] Medical History (Updated 02/24/25 @ 09:46 by Tay Alarcon MD) Tinnitus of left ear Sprain of left shoulder Anxiety BPH (benign prostatic hyperplasia) Asthma Cardiomyopathy Nontoxic goiter Surgical History H/O lithotripsy S/P TURP H/O left inguinal hernia repair H/O transurethral resection of prostate History of tonsillectomy H/O inguinal hernia repair H/O colonoscopy (~01/06/25) Family History Father Esophageal cancer Mother Breast cancer Brother Skin cancer Paternal Grandfather Cancer Social History Housing: House Are you a primary acute care certified nursing assistant to a significant other at home: No Do you presently have visiting nurse or other home services: No Alcohol intake: former Comment: Quit 1985 Patient Tobacco Use Status: Never used Tobacco e-Cigarette/Vaping Use: Never Used service: No Current occupational status: retired Cognitive needs: No Hearing needs: No Vision needs: Yes (rx glasses) Questionnaire PHQ-9 Over the last 2 weeks, how often have you been bothered by any of the following problems? 1. Little interest or pleasure in doing things: not at all 2. Feeling down, depressed, or hopeless: not at all 3. Trouble falling or staying asleep, or sleeping too much: not at all 4. Feeling tired or having little energy: not at all 5. Poor appetite or overeating: not at all 6. Feeling bad about yourself - or that you are a failure or have let yourself or your family down: not at all 7. Trouble concentrating on things, such as reading the newspaper or watching television: not at all 8. Moving or speaking so slowly that other people could have noticed. Or the opposite - being so fidgety or restless that you have been moving around a lot more than usual: not at all 9. Thoughts that you would be better off or of hurting yourself in some way: not at all Total score: 0 Source: Developed by Drs. Logan Alston, Terri Blank, Jovan Bernardo and colleagues, with an educational teena from [employer]. Thrive Questionnaire Date Thrive assessed: 02/24/25 I am a: Patient Within the past 12 months, did the food you bought not last and you didn't have the money to get more?: Never true Within the past 12 months, did you worry whether your food would run out before you got money to buy more?: Never true Do you have trouble paying for medicines?: No Do you have trouble getting transportation to medical appointments?: No Do you have trouble paying your heating and electricity bill?: No Do you have trouble taking care of your child, family member or friend?: No Do you have trouble with day-to-day activities such as bathing, preparing meals, shopping, managing finances, etc.?: No Are you currently unemployed and looking for a job?: No Are you interested in more education?: No THRIVE Score: 0 AUDIT C Alcohol Use Questionnaire (AUDIT-C) 1. How often do you have a drink containing alcohol?: Never 3. How often do you have six or more drinks on one occasion?: Never Total Score: 0 REY-7 AMB Questionnaire REY-7 Date REY - 7 assessed: 02/24/25 Feeling nervous, anxious, or on edge: 0 = Not at all Not being able to stop or control worryin = Not at all Worrying too much about different things: 0 = Not at all Trouble relaxin = Not at all Being so restless that it is hard to sit still: 0 = Not at all Becoming easily annoyed or irritable: 0 = Not at all Feeling afraid as if something awful might happen: 0 = Not at all Total RYE-7 score (0-4 normal; 5-9 mild; 10-14 moderate; 15-21 severe): 0 Source: Developed by Drs. Logan Alston, Terri Blank, Jovan Bernardo and colleagues, with an educational teena from [employer]. Physical exam (Primary Care) Vital Signs: Last Vital Signs Temp 97 F 02/24/25 09:03 Pulse 81 02/24/25 09:03 BP 128/70 02/24/25 09:03 Pulse Ox 99 02/24/25 09:03 Oxygen Delivery Method Room Air 02/24/25 09:03 BMI result Body Mass Index 27.1 Tobacco/Smoking Status: Tobacco use Status Tobacco use date assessed 02/24/25 02/24/25 09:04 Patient Tobacco Use Status Never used Tobacco 02/24/25 09:04 e-Cigarette/Vaping Use Never Used 02/24/25 09:11 PHQ-9: PHQ-9 Score PHQ-9: Total score 0 02/24/25 09:04 Thrive Assessment: Date of Thrive Assessment Date Thrive assessed 02/24/25 02/24/25 09:04 Coding Level of Care Code New Pt Level 4 (62143) Complex EM visit Add On G2211 Diagnoses Sprain of left shoulder S43.402A Tinnitus of left ear H93.12 Assessment & Plan Assessment & Plan (1) Sprain of left shoulder: Code(s): S43.402A - Unspecified sprain of left shoulder joint, initial encounter Category: Medical Plan: X rays and CT from the ER visit reviewed. Physical therapy suggested to improve range of motion. (2) Tinnitus of left ear: Code(s): H93.12 - Tinnitus, left ear Category: Medical Plan: Wax removal at the walk-in clinic, Audiology appt to check hearing and ENT referral Plan History of Present Illness The patient is a 74-year-old male presenting with tinnitus and suspicion of ear dysfunction following a fall. Nine weeks ago, he slipped and hit his cheek and arm. He sought emergency care and was diagnosed with contusions; a subsequent CAT scan ruled out fractures and blood clots. Since the fall, he experiences high-pitched hissing and echoing in his left ear, altering his auditory perception and interfering with musical activities. The patient has a longstanding history of tinnitus but reports recent changes attributed to the fall. Prevented from playing his saxophone, he?s worried about aggravating his condition through increased pressure during play. Additionally, the patient reports moderate limitations with his left arm, particularly in reach and certain movements, but can manage daily activities with compensatory mechanisms. 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 - Functional status: Adapted driving techniques post-incident, shifting tasks to right arm due to left hand dexterity. - Family status: Mentioned a sister with a similar auditory condition, treated with surgical intervention. Review of Systems - Neurological: Reports persistent high-pitched hissing and echoing in the left ear. Denies any dizziness or vertigo. - Musculoskeletal: Reports limitation in left arm movement post-fall. Denies severe pain. - Auditory: Reports changes in hearing with echoing and altered sound perception. Denies hearing loss in normal auditory ranges. Physical Exam General: Cooperative and healthy appearing Nutritional Appearance: Well nourished Orientation/consciousness: Patient oriented x3 Limitations: No limitations Head: Normal to inspection General: Appearance normal, both eyes and all related structures Neck: Normal visual inspection Chest: Normal palpation of entire chest wall Respiratory: N ormal respiratory effort Neurology: Patient oriented x3, but reports tinnitus and echoing in the left ear after a fall. Results - Imaging: Previous CAT scan post-fall, which showed no fractures or blood clots. Plan I will refer the patient for an ENT evaluation to determine if surgical intervention is necessary for the suspected Eustachian tube dysfunction. An audiology consultation will be scheduled to assess ongoing hearing changes and ensure quality audiometric health, as well as to address persistent tinnitus concerns. Existing ear wax will be removed to alleviate any obstruction. Driving habits should adjust accordingly, with further arm activity introduced gradually, monitored for any complications. Scheduled follow-up visits will focus on auditory and arm function reassessments to guide treatment and care adjustments. Patient was informed and verbally consented to the use of an ambient scribe for clinic note documentation during this visit. Discussion Notes I explained to the patient the likely post-traumatic auditory changes contributing to the tinnitus and suspected Eustachian tube dysfunction. I discussed the necessity of consulting ENT specialists to determine if any surgical intervention might be warranted, similar to his sister's previous treatment. I assured a referral and audiology consultation will be pursued to understand and measure the changes in auditory capacity and quality. Risks, benefits, and the need for expedient follow-up were discussed, particularly emphasizing avoiding aggravation of symptoms via saxophone play until further assessment. 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 Patient Instructions - Schedule an appointment with the referred ENT specialist. - Arrange for a hearing evaluation with an director counseling bureau. - Avoid playing the saxophone until after further assessment. - Monitor and adapt driving technique as needed for comfort. - Return for any worsening of symptoms or new concerns. - Follow up with scheduled visits to reassess hearing and arm function.
== END 2025-02-24 09:43 | disposition home or self-care (01) ==
LOC: HO.HMCHD 09:01
PROVIDERS: PCP Internal Medicine; Visit Provider Internal Medicine
DX: S43.402A Unspecified sprain of left shoulder joint, initial encounter (principal); H93.12 Tinnitus, left ear

== ENCOUNTER → 2025-02-24 09:01 | Outpatient (BNVA) | payer MEDICARE, SELFPAY | PROVIDERS: PCP Internal Medicine; Visit Provider Internal Medicine | DX: H61.23 Impacted cerumen, bilateral (principal); H93.12 Tinnitus, left ear; S43.402A Unspecified sprain of left shoulder joint, initial encounter; X58.XXXA Exposure to other specified factors, initial encounter; Y93.9 Activity, unspecified; Y92.9 Unspecified place or not applicable; Y99.9 Unspecified external cause status | CPT/HCPCS: 69210; 96127; 99202; 99212 ==

== ENCOUNTER 2025-02-24 10:55 | Outpatient (AMB) | payer MEDICARE, SELFPAY ==
--- NOTE | 2025-02-24 11:05 | MHC.OFFWIV ---
Intake Vital Signs 02/24/25 11:06 Weight 193 lb BP 122/80 Blood Pressure Location Rt brachial Position Sitting Pulse 66 Pulse Source Pulse Oximeter Pulse Oximetry (%) 95 Oxygen Delivery Method Room Air Intake Visit Reasons: EP-lt ear wax removal Intake Note: Patient here for left ear discomfort/ear wax? Patient Tobacco Use Status: Never used Tobacco Allergies cat dander [CAT DANDER] Allergy (Unknown, Verified 02/24/25 11:07) UNKNOWN dog dander [DOG DANDER] Allergy (Unknown, Verified 02/24/25 11:07) UNKNOWN feathers Allergy (Unknown, Verified 02/24/25 11:07) Unknown grass pollen Allergy (Unknown, Verified 02/24/25 11:07) Unknown levofloxacin [From LEVAQUIN] Allergy (Unknown, Verified 02/24/25 11:07) UNKNOWN mold [MOLD] Allergy (Unknown, Verified 02/24/25 11:07) UNKNOWN Penicillins [PENICILLINS] Allergy (Unknown, Verified 02/24/25 11:07) UNKNOWN pollen extracts [POLLEN] Allergy (Unknown, Verified 02/24/25 11:07) UNKNOWN tobacco smoke Allergy (Severe, Uncoded 02/24/25 11:07) asthma Do you need a note to return to daycare/school/sports/work: No HPI HPI Comments History of Present Illness Details Pt is a 74yo M who presents sent by PCP for ear wax removal In December he fell onto L side; had full work up in ER and improving Since then he has had intermittent hum in L ear No hearing loss or tinnitus His PCP saw him today and is setting him up for a hearing test and possible ENT referral He was sent here to get ears cleaned prior to hearing test No pain, 0/10 Has had ears cleaned in past [facility] Medical History (Updated 02/24/25 @ 11:17 by Tonie Vega PA-C) Tinnitus of left ear Sprain of left shoulder Anxiety BPH (benign prostatic hyperplasia) Asthma Cardiomyopathy Nontoxic goiter Surgical History H/O lithotripsy S/P TURP H/O left inguinal hernia repair H/O transurethral resection of prostate History of tonsillectomy H/O inguinal hernia repair H/O colonoscopy (~01/06/25) Family History Father Esophageal cancer Mother Breast cancer Brother Skin cancer Paternal Grandfather Cancer Social History Housing: House Are you a primary critical care clinical nurse specialist to a significant other at home: No Do you presently have visiting nurse or other home services: No Alcohol intake: former Comment: Quit 1985 Patient Tobacco Use Status: Never used Tobacco e-Cigarette/Vaping Use: Never Used service: No Current occupational status: retired Cognitive needs: No Hearing needs: No Vision needs: Yes (rx glasses) Review of Systems Const Denies chills and Denies fever(s) ENT Denies dizziness and Denies otalgia (but + hum sound/muffled hearing L side) Card Denies syncope Neuro Denies dizziness and Denies syncope Physical Exam Vital Signs: Last Vital Signs Pulse 66 02/24/25 11:06 BP 122/80 02/24/25 11:06 Pulse Ox 95 02/24/25 11:06 Oxygen Delivery Method Room Air 02/24/25 11:06 General: Non-toxic, NAD. Speaking full sentences. Skin: Warm dry throughout Eye: EOMI HENT: Bilateral canals have large cerumen impaction but able to partially visualize TM bilaterally. Post removal, TM non-erythematous, non-bulging. No TM perforation or hemotympanum noted. Respiratory: No tachypnea Neurology: lert. No aphasia or facial droop. Psych: Good mood and affect Office Procedures Cerumen Removal Details: verbal consent obtained prior to procedure From which ear canal was the cerumen removed: bilateral Removal: otoscope w/curette Notes: patient tolerated procedure well, no complications and ear canal clear [id number] Wax Removal by Spoon/Curette Assessment & Plan Assessment & Plan (1) Impacted cerumen, bilateral: Code(s): H61.23 - Impacted cerumen, bilateral Plan: See procedure note F/U with PCP for hearing work up Call with concerns Coding Level of Care Code Est Pt Level 3 (25447) Diagnoses Impacted cerumen, bilateral H61.23 CPT Codes Office Procedure - CPT: 40773-Ryu Wax Removal by Spoon/Curette ([id number])
[2025-02-24 11:06] VITALS: BP 122/80; PULSE 66; O2SAT 95
== END 2025-02-24 11:37 | disposition home or self-care (01) ==
PROVIDERS: PCP Internal Medicine; Visit Provider Physician Assistant
DX: H61.23 Impacted cerumen, bilateral (principal)

== ENCOUNTER 2025-04-29 14:45 | Outpatient (RCR) | payer MEDICARE, SELFPAY ==
--- NOTE | 2025-03-24 11:48 | MHC.PT.EP ---
[facility] [place] [facility] [place] [facility] [place] [facility] [address] [phone] F: [phone] F: [phone] F: [phone] F: [phone] Physical Therapy Plan of Care Date of Evaluation: 03/24/25 Date of Surgery: NA Diagnosis: Unspecified sprain on L shoulder joint Assessment: José Luis is a 74 year old male who is referred to PT for unspecified sprain of L shoulder joint . He reports of injuring his L shoulder secondary to fall on ice about 3 months back. Fracture has been ruled out. On PT examination he presented with mild TTP over L UT, 5-7/10 pain with shoulder movements like reaching over head, reaching behind head and back and L SL, decreased L shoulder ROM, decreased strength in L shoulder and altered posture. He lives alone and is independent with ADLS but has pain with them and modifies by using R UE. He enjoys playing Virax and Hyporite but has not been able to due to pain. He would benefit from skilled PT to address the aforementioned impairments and improve tolerance to functional activities. Frequency and Duration: The patient will be seen 2/week for 5 weeks Short Term Goals: 1. Pt will demonstrate initiation of HEP in 2 weeks 2. Pt will have 50% decrease in pain which will enable him to tolerate L SL in 3 weeks Pet Stylist Goals: 1. Pt will be able to move L shoulder through full plane of motion with a pain no more than 3/10 which will enable him to dress his upper body without modification in 4 weeks 2. Pt will demonstrate an increase in muscle strength by 1 grade which will enable him with perform ADLS with pain no more than 2/10 and without modifications in 5 weeks 3. Pt will be independent with all HEP for symptom management and maintenance following d/c in 5 weeks. Treatment Plan: Modalities to reduce pain, spasms and effusion. Manual therapy to restore motion and function. Therapeutic exercise to improve strength and flexibility. Neuromuscular re-education for posture and balance. Therapeutic activities to return to functional activities of daily living. Electronically signed by: Carole Palumbo PT DPT Please sign and return to therapist. Thank you for your referral.
--- NOTE | 2025-05-06 08:52 | MHC.PT.DC ---
[facility] [place] [facility] [place] [facility] [place] [facility] [address] [phone] F: [phone] F: [phone] F: [phone] F: [phone] Physical Therapy Discharge Report Diagnosis: Unspecified sprain on L shoulder joint Date of Surgery: NA Date of Evaluation: 03/24/25 Date of Discharge: 05/06/25 Treatments to Date: 9 Cancellations to Date: 0 No Shows to Date: 0 Discharge Status: Achieved Goals Improved Function Independent with HEP Discharge Summary: José Luis attended 9 PT visits and made significant improvements with PT. He is independent with all HEP. He is therefore being d/c from PT. Electronically signed by: Carole Palumbo PT DPT Please sign and return to therapist. Thank you for your referral.
== END 2025-05-06 08:52 | disposition home or self-care (01) ==
LOC: HO.PT 14:45
PROVIDERS: PCP Internal Medicine; Visit Provider Internal Medicine
DX: S43.402D Unspecified sprain of left shoulder joint, subsequent encounter (principal)
CPT/HCPCS: 97110; 97161

== ENCOUNTER 2025-08-25 09:59 | Outpatient (REF) | payer MEDICARE, SELFPAY ==
[2025-08-25 12:41] LABS: Alanine Aminotransferase 23 U/L (0-40); Albumin Level 4.4 g/dL (3.5-5.0); Alkaline Phosphatase 99 U/L (39-117); Anion Gap 9 (12-20); Aspartate Amino Transferase 34 U/L (5-37); Blood Urea Nitrogen 22 mg/dL (9-16); Calcium 9.2 mg/dL (8.4-10.2); Carbon Dioxide 31 mmol/L (22-29); Chloride 107 mmol/L (96-108); Estimated Glomerular Filt Rate > 60; Potassium 4.7 mmol/L (3.3-5.1); Sodium 142 mmol/L (135-145); Total Protein 7.1 g/dL (6.5-8.0)
--- OUTSIDE RECORDS SUMMARY | 2025-08-25 14:18 | XMS_ITS | Data Portability ---
Author Organization [place] - [facility], Allergy Address [address] [place] [id number] Care Team Providers Care Dog Boarder Name Role Phone ARIEL URIEL Primary Care Provider Assessment Encounter Date Assessment Date Assessment LastModified by Organization Details LastModified Time 05/06/2025 05/06/2025 1. Left Ear Acoustic Symptoms The patient described intermittent hissing and reverberation sensations following a fall. An MRI scan is indicated to evaluate potential structural changes or pathologies within the inner ear. 2. Hearing Loss, Left Ear Noted high-frequency hearing decline post-injury; MRI scan is planned to investigate any undetected structural causes. 3. Deviated Nasal Septum Identified septal deviation; currently asymptomatic concerning planning for intervention. 4. Diastolic Dysfunction Historical diastolic dysfunction noted, no immediate otolaryngological management required currently. [email or web address] Not available 05/06/2025 09:43:48 08/12/2025 08/12/2025 Based on patient 's own self-assessment and audiometric testing today, the abnormal perceptions and changes in the hearing in the left ear appears to be improving following what appears to be a labyrinthine concussion, with possible temporary effect on the vibrational capacity of the ossicular chain. This seems to be slowly healing over time. Patient has some residual symptoms in the left ear which could also be related to his underlying history of left TMJ dysfunction and history of joint dislocation. I gave him reassurance that his symptoms should likely continue to improve over time and that no further workup or treatment is required. Not available 08/12/2025 14:12:28 Plan of Treatment Reminders Order Date Submit Date Provider Last Modified By Organization Details Last Modified Time Details Appointments None recorded. Lab None recorded. Referral None recorded. Procedures None recorded. Surgeries None recorded. Imaging MRI, brain + internal auditory canal, w/wo contrast - next available. ...IAC protocol 2024 025 JUAN [facility] ([facility]), [address], [place], [address], 09:41:36 Medication Orders None recorded. Patient TargetsNo targets recorded. Patient Instructions Encounter Date Encounter Id Patient Instructions Last Modified By Organization Details Last Modified Time 05/06/2025 [id number] Please note: Parts of this encounter note have been generated by AI based on audio conversation. Patient consent was required prior to utilizing this technology. Content review was required prior to finalizing the note. [email or web address] Not available 05/06/2025 09:41:41 Reason for Referral None Reported. Results Created Date Observation Date Name Description Value Unit Range Abnormal Flag Note LastModifiedBy Organization Detail LastModifiedTime 05/06/20 audio gram No observ ation record ed. BARCODE Not Available 2024 17:53:21 05/25/20 25 05/20/2025 MRI, brain + brain stem, w/wo contr ast [facility] Access ion Number : [id number] Fabio t Name: Georgina lucy José Luis Tanga l Record Number : [id number] Date of : 1950 Date of Exam: 2024 Referr ing Physic srikanth: Luis davis , [facility] [address] [place] [address] Exam: MR Brain (C-/C+ ) CPT 28852 [facility] ([facility]-/C+ ) CPT 48213 INDICA TION / CLINIC AL QUESTI ON: Tinnit us, left ear, , next availa ble... .IAC protoc ol\E E\[facility] (MRI, BRAIN + BLOOD BANK CUSTODIAN AL AUDITO RY CANAL, W/WO CONTRA ST) Tinnit us, left ear, , next availa ble... .IAC protoc ol\E E\[facility] (MRI, BRAIN + BLOOD BANK CUSTODIAN AL AUDITO RY CANAL, W/WO CONTRA ST) TECHNI QUE: MRI of the brain with attent ion to the lab intern al audito ry canals was perfor med with and withou t contra st utiliz ing sagitt al T1, axial T2, axial CISS, axial and peng l T1, and post-c ontras t axial and peng l T1-amara ghted sequen ruy. 10 mL Elucir em intrav enous contra st was admini stered . COMPAR NETTE: Correl ation with head CT 025. FINDIN GS: IAC: There is no mass or abnorm al enhanc ement in the lab intern al audito ry canals or cerebe llopon shivani angles . Course and calibe r of the 7th and 8th crania l nerves is normal bilate rally. Fluid signal is preser dev in the inner ear struct ures bilate rally. Brains tem demons trates normal signal . BRAIN and EXTRA- AXIAL SPACES : No signif icant abnorm ality of the visual ized portio ns of the brain and extra- axial spaces . EXTRAC RANIAL SOFT TISSUE S: Visual ized portio ns of the extrac ranial soft tissue s are unrema rkable . Mild scatte red parana giorgio sinus mucosa l thicke mariely. BONES: Visual ized marrow signal is preser dev. IMPRES POOJA: No retroc ochlea r abnorm ality to explai n the patien t?s sympto ms. Electr onical ly Signed By: Kusum MARTINEZ [facility] ([facility]) [address], [place], [address], 05/25/2025 12:14:00 08/12/20 25 audio gram No observ ation record ed. BARCODE Not Available 2024 15:24:12 Result Notes Documentation Provider Name and Address Organization Details Recorded Time Mri, Brain + Brain Stem, W/wo Contrast : [facility] Accession Number: [id number] Patient Name: José Luis Ordaz Date of : 1950 Date of Exam: 05-20-2025 Referring Physician: Nate Ivory [facility] [address] [place] [address] Exam: MR Brain (C-/C+) CPT 39685 Room Description: [facility] 3.0T MR Brain (C-/C+) CPT 99965 INDICATION / CLINICAL QUESTION: Tinnitus, left ear, , next available....IAC protocol\E E\[facility] (MRI, BRAIN + INTERNAL AUDITORY CANAL, W/WO CONTRAST) Tinnitus, left ear, , next available....IAC protocol\E E\[facility] (MRI, BRAIN + INTERNAL AUDITORY CANAL, W/WO CONTRAST) TECHNIQUE: MRI of the brain with attention to the internal auditory canals was performed with and without contrast utilizing sagittal T1, axial T2, axial CISS, axial and coronal T1, and post-contrast axial and coronal T1-weighted sequences. 10 mL Elucirem intravenous contrast was administered. COMPARISON: Correlation with head CT 12/29/2024. FINDINGS: IAC: There is no mass or abnormal enhancement in the internal auditory canals or cerebellopontine angles. Course and caliber of the 7th and 8th cranial nerves is normal bilaterally. Fluid signal is preserved in the inner ear structures bilaterally. Brainstem demonstrates normal signal. BRAIN and EXTRA-AXIAL SPACES: No significant abnormality of the visualized portions of the brain and extra-axial spaces. EXTRACRANIAL SOFT TISSUES: Visualized portions of the extracranial soft tissues are unremarkable. Mild scattered paranasal sinus mucosal thickening. BONES: Visualized marrow signal is preserved. IMPRESSION: No retrocochlear abnormality to explain the patient?s symptoms. Electronically Signed By: Kusum IVORY MD [address] [place] [address], [phone], [facility] - [facility] 05/25/2025 10:22:10 Problems Name Problem SNOMED Code Status Onset Date Resolution Date Notes Provider Name and Address Organization Details Recorded Time Sensorineur al hearing loss of bilateral ears 572414520 Active 2024 VIELKA LEES [address] [address], [place], [address], [facility] - [facility] 09:15:36 Tinnitus of left ear 8464340793470 Active 2024 NATE RUBY MD [address] [address], [place], [address], [place] - [facility] 09:30:51 Deviated nasal septum 246388577 Active 2024 NATE RUBY MD [address] [facility],[address] [address], [place], [address], [place] - [facility] 09:44:04 Mixed conductive AND sensorineur al hearing loss 28028353 Active 2024 ROULA LUDWIG MD [address] [facility],[address] [address], [place], [address], [place] - [facility] 20:53:52 Temporomand ibular joint disorder 66443001 Active 2024 ROULA LUDWIG MD [address] [facility],[address] [address], [place], [address], [place] - [facility] 14:06:45 Abnormal auditory perception 64153749 Active 2024 ROULA LUDWIG MD [address] [facility],[address] [address], [place], [address], [place] - [facility] 14:08:07 Problem Notes None recorded. Procedures Surgical History Date Name Laterality Status Provider Name and Address Organization Details Recorded Time 08/12/20 25 Air & Speech Audio with Tymps - 87110, 91777 & 60327 completed SUSI GARCIA [place], CCC-A [address], [address], [place] - [facility] 08/12/2025 13:27:15 05/06/20 25 Comp Audio with Tymps - 47513 & 43303 completed VIELKA LEES [address] [facility],[address], [address], [place] - [facility] 05/06/2025 09:10:04 tonsillectomy completed Mabel Tran [place] - [facility] 05/06/2025 10:05:20 hernia repair completed Mabel Tran [place] [facility] 05/06/2025 10:05:35 screening colonoscopy completed Mabel Tran [place] - [facility] 05/06/2025 10:05:49 Imaging Results None recorded. Procedure Notes None recorded. Medical Equipment None Reported. Allergies Allergen ID Allergen Name Allergen Category Reaction Reaction Severity Criticality Documentation Date Start Date Code Code System Note Provider Name and Address Organization Details Recorded Time 178065 Levaquin medicatio n Not available Not available Not available 05/06/2025 14733 2 RxNorm Mabel zacarias [place] [facility] 10:04:05 151355 Product containin g penicilli n (product) medicatio n Not available Not available Not available 05/06/2025 78060 8001 SNOMED Mabel zacarias [facility] 10:04:15 Medications Name Sig Start Date Stop Date Status Note LastModified by Organization Details LastModified Time Laxative (bisacodyl ) 5 mg tablet,del ayed release TAKE 2 TABLETS BY MOUTH AT BEDTIME FOR 2 DAYS 05/06 completed Not Available Not Available Not Available GaviLyte-G 236 gram-22.74 gram-6.74 gram-5.86 gram oral solution DRINK 240 ML ORALLY EVERY 10 MINUTES UNTIL FECAL EFFLUENT IS CLEAR 05/06 completed Not Available Not Available Not Available albuterol sulf 90 mcg/actuat ion breath activated powder inhaler,se nsor Inhale 2 puffs every 4 hours by inhalation route. active Not Available Not Available No t Available Vitals Date Recorded Body height Body mass index (BMI) Body weight Provider Name and Address Organization Details Last Updated DateTime 05/06/2025 180.34 cm 28.9 kg/m2 27315.62 g Mabel Tran [place] [facility] 05/06/2025 09:25:36 Date Recorded Body height Body weight Provider Name and Address Organization Details Last Updated DateTime 08/12/2025 180.34 cm 97577.44 g Leidy Mayer [facility] 08/12/2025 13:19:52 Social History None recorded. Functional Status None recorded. Mental Status None recorded. Family History Nothing Reported. Medical History Condition Response Asthma Y Past Encounters Encounter ID Performer Location Encounter Start Date Encounter Closed Date Diagnosis/Indication Diagnosis SNOMED-CT Code Diagnosis ICD10 Code Diagnosis IMO Codes Diagnosis Note [id number] NATE HERRON MD [facility] [address] [address] 05/06/2025 08:50:08 05/06/2025 10:48:03 Sensorineural hearing loss of bilateral ears 205147325 H90.3 [id number] Audiologic al evaluation results: Right ear: Normal sloping to mild sensorineu ral hearing loss with excellent word recognitio n. Left ear: Normal sloping to moderate sensorineu ral hearing loss with excellent word recognitio n. Tympanomet ry: Right Ear:Type A Left Ear:Type A Tinnitus of left ear 751 1293145 106 H93.12 534750 Deviated nasal septum 12 2354803 J34.2 [id number] ROULA LUDWIG MD [facility] [address] [address] 08/12/2025 12:40:49 08/12/2025 14:58:19 Mixed conductive AND sensorineural hearing loss 29309224 H90.A32 91881020 Audiologic al evaluation results:Ri ght ear:Normal / borderline normal thru 6000Hz with a mild loss at 8000Hz with excellent word recognitio n.Left ear:Normal hearing thru 2000Hz sloping to a mild SNHL with excellent word recognitio n. Tympanomet ry:Right Ear:Type ALeft Ear:Type Ad ( 1.4) Temporoman dibular joint disorder 81725233 M26.609 352890 Abnormal a uditory perception 42675957 H93.292 [id number] Health Concerns Section Related Observation LastModified by Organization Detai ls LastModified Time None Recorded Concern Status LastModified by Organization Details LastModified Time None Recorded Advance Directives Directive None Recorded Payers Insurance Date Sequence Insurance Name Policy Number Policy Brunson Covered Member ID Brunson Member ID Guarantor Name 08/12/2025 1 [place] (MEDICARE REPLACEMENT PPO) [id number] José Luis Ordaz [id number] José Luis Ordaz Notes Date Note Type Note Provider Name and Address Organization Details Recorded Time 05/06/2025 text/html The patient is a 57-year-old male presenting with left ear acoustic symptoms and hearing loss. On December 21, after slipping on ice, the patient experienced immediate auditory disturbances characterized by a hissing noise in his left ear. This was accompanied by a decrease in hearing acuity on the affected side. The initial high-pitched sounds and hissing have mostly resolved but occasionally resurface. Since the fall, the patient also experiences an echo-like reverberation when exposed to auditory stimuli, particularly impacting musical engagements and daily media consumption. Diagnostic imaging via CAT scan performed post-incident showed no fractures or acute changes. Audiological assessments have delineated a loss, especially in the high-frequency range, unmatched to historical aural processing difficulties previously diagnosed NATE IVORY MD [address] [place] [address],[address], [address], [facility] 05/06/2025 09:44:29 08/12/2025 text/html Patient previously seen by Dr. Ivory. Patient noted intermittent hissing and reverberation sensation in the left ear following a fall with head trauma in December 2024. He had audiometric testing in May which showed an asymmetric high-frequency conductive hearing loss affecting the left ear. MRI scan of the brain and internal auditory canals with gadolinium did not show any retrocochlear or intracranial pathology. Patient referred to me to discuss his audiometric findings.His patient has a hard time describing his symptoms, but there is certainly a peculiar auditory sensation in the left ear particularly with his own voice. Overall this is improving over time compared what it was like previously. Still has variable but infrequent tinnitus at this point.Pt has h/o TMJ dysfunction on the left as noted by his dentist. ROULA LUDWIG MD [address] [facility] [address], [place], [address], [facility] 08/12/2025 14:12:33
== END 2025-08-25 10:00 | disposition home or self-care (01) ==
LOC: HO.LAB 09:59
PROVIDERS: Absent Provider Internal Medicine; PCP Internal Medicine; Visit Provider Physician Assistant Medical
DX: Z00.00 Encounter for general adult medical examination without abnormal findings (principal); H93.12 Tinnitus, left ear; J45.909 Unspecified asthma, uncomplicated; S42.402A Unspecified fracture of lower end of left humerus, initial encounter for closed fracture; H26.9 Unspecified cataract; W19.XXXA Unspecified fall, initial encounter; Y93.9 Activity, unspecified; Y92.9 Unspecified place or not applicable; Y99.9 Unspecified external cause status
CPT/HCPCS: 36415; 80053; 96127

== ENCOUNTER 2025-08-25 09:59 | Outpatient (AMB) | payer MEDICARE, SELFPAY ==
--- NOTE | 2025-08-24 17:46 | MHC.PC.OV ---
Vital Signs 08/25/25 10:02 Height 5 ft 11 in Weight 200 lb BMI 27.9 BP 124/76 Blood Pressure Location Rt brachial Position Sitting Pulse 63 Pulse Source Pulse Oximeter Temp 97.6 F Temp Source Temporal Artery Scan Pulse Oximetry (%) 98 Oxygen Delivery Method Room Air Intake Visit Reasons: routine Gathering Machine Feeder Required: No Accompanied by: Self / Same As Patient Allergies cat dander (CAT DANDER) Allergy (Unknown, Verified 08/25/25 10:03) UNKNOWN dog dander (DOG DANDER) Allergy (Unknown, Verified 08/25/25 10:03) UNKNOWN feathers Allergy (Unknown, Verified 08/25/25 10:03) Unknown grass pollen Allergy (Unknown, Verified 08/25/25 10:03) Unknown levofloxacin (From LEVAQUIN) Allergy (Unknown, Verified 08/25/25 10:03) UNKNOWN mold (MOLD) Allergy (Unknown, Verified 08/25/25 10:03) UNKNOWN Penicillins (PENICILLINS) Allergy (Unknown, Verified 08/25/25 10:03) UNKNOWN pollen extracts (POLLEN) Allergy (Unknown, Verified 08/25/25 10:03) UNKNOWN tobacco smoke Allergy (Severe, Uncoded 02/24/25 11:07) asthma Medication List - Last Reconciled 08/25/25 by JOSEPHINE Giraldo albuterol sulfate 90 mcg/actuation 2 inhalations inhalation Q6-8H PRN Tobacco use date assessed: 08/25/25 Fall risk assessment: No Falls in past year Last assessed Fall Risk: 08/25/25 Dental Screening Dental Screen Date: 08/25/25 Did you have a dental visit in the last 12 months?: No Did you have a dental problem in the last 6 months where you did not have access to dental care?: No HPI HPI Comments History of Present Illness Details The patient is a 74-year-old male with asthma, BPH, Tinnitus in left ear, and left shoulder pain presenting to [facility]. He reports a history of hearing loss with Tinnitus following a fall on December 21 of the previous year, which resulted in white noise in the ear and subsequent echoing sounds. He has undergone multiple evaluations, including an MRI and hearing tests, which showed improvement in hearing. He has been followed by ENT The patient also experiences shoulder pain following the same fall, which initially limited his ability to lift his arm. Physical therapy has been beneficial, and he reports gradual improvement in strength and mobility. The patient has cataracts, which are not severe enough to require surgery at this time. He also experiences visual disturbances described as a semicircle of glowing light, which his eye doctor attributes to migraines possibly triggered by caffeine. The patient has a history of asthma, previously requiring emergency room visits and steroid treatment. Currently, he uses an albuterol inhaler as needed and has not experienced significant respiratory issues for several months. He is due for labs. He had a colonoscopy done in January of this year with repeat recommended in 5 years. [facility] Medical History (Updated 08/25/25 @ 11:08 by JOSEPHINE Giraldo) Anxiety Asthma BPH (benign prostatic hyperplasia) Cardiomyopathy Cataracts, bilateral Nontoxic goiter Sprain of left shoulder Tinnitus of left ear Surgical History H/O colonoscopy (~01/06/25) H/O inguinal hernia repair H/O left inguinal hernia repair H/O lithotripsy H/O transurethral resection of prostate History of tonsillectomy S/P TURP Family History (Updated 08/25/25 @ 10:10 by Harper Garza MA) Father Esophageal cancer Mother Breast cancer Brother Skin cancer Paternal Grandfather Cancer Social History Housing: House Are you a primary child care associate teacher to a significant other at home: No Do you presently have visiting nurse or other home services: No Alcohol intake: former Comment: Quit 1985 Patient Tobacco Use Status: Never used Tobacco e-Cigarette/Vaping Use: Never Used service: No Current occupational status: retired Cognitive needs: No Hearing needs: No Vision needs: Yes (rx glasses) Questionnaire PHQ-9 Over the last 2 weeks, how often have you been bothered by any of the following problems? 1. Little interest or pleasure in doing things: not at all 2. Feeling down, depressed, or hopeless: not at all 3. Trouble falling or staying asleep, or sleeping too much: not at all 4. Feeling tired or having little energy: not at all 5. Poor appetite or overeating: not at all 6. Feeling bad about yourself - or that you are a failure or have let yourself or your family down: not at all 7. Trouble concentrating on things, such as reading the newspaper or watching television: not at all 8. Moving or speaking so slowly that other people could have noticed. Or the opposite - being so fidgety or restless that you have been moving around a lot more than usual: not at all 9. Thoughts that you would be better off or of hurting yourself in some way: not at all Total score: 0 Depression Screening Interpretation: Negative Depression Screening Done: Yes 38272 - PHQ-9 Billing: Yes Source: Developed by Drs. Logan Alston, Terri Blank, Jovan Bernardo and colleagues, with an educational teena from [employer]. Thrive Questionnaire Date Thrive assessed: 08/25/25 I am a: Patient Within the past 12 months, did the food you bought not last and you didn't have the money to get more?: Never true Within the past 12 months, did you worry whether your food would run out before you got money to buy more?: Never true Do you have trouble paying for medicines?: No Do you have trouble getting transportation to medical appointments?: No Do you have trouble paying your heating and electricity bill?: No Do you have trouble taking care of your child, family member or friend?: No Do you have trouble with day-to-day activities such as bathing, preparing meals, shopping, managing finances, etc.?: No Are you currently unemployed and looking for a job?: No Are you interested in more education?: No THRIVE Score: 0 AUDIT C Alcohol Use Questionnaire (AUDIT-C) 1. How often do you have a drink containing alcohol?: Never 3. How often do you have six or more drinks on one occasion?: Never Total Score: 0 REY-7 AMB Questionnaire REY-7 Date REY - 7 assessed: 08/25/25 Feeling nervous, anxious, or on edge: 0 = Not at all Not being able to stop or control worryin = Not at all Worrying too much about different things: 0 = Not at all Trouble relaxin = Not at all Being so restless that it is hard to sit still: 0 = Not at all Becoming easily annoyed or irritable: 0 = Not at all Feeling afraid as if something awful might happen: 0 = Not at all Total REY-7 score (0-4 normal; 5-9 mild; 10-14 moderate; 15-21 severe): 0 Source: Developed by Drs. Logan Alston, Terri Blank, Jovan Bernardo and colleagues, with an educational teena from [employer]. Review of Systems Narrative CONSTITUTIONAL Negative HEAD/NECK Reports visual disturbances described as a semicircle of glowing light EAR/NOSE/MOUTH/THROAT Reports hearing loss and echoing sounds in the ear. Denies headaches. RESPIRATORY : Denies chest pain, shortness of breath, or coughing. CARDIOVASCULAR Negative GASTROINTESTINAL Negative MUSCULOSKELETAL Reports shoulder pain and limited mobility. Denies other joint pain. NEUROLOGICAL Negative PSYCHIATRIC Negative Physical exam (Primary Care) Vital Signs: Last Vital Signs Temp 97.6 F 08/25/25 10:02 Pulse 63 08/25/25 10:02 BP 124/76 08/25/25 10:02 Pulse Ox 98 08/25/25 10:02 Oxygen Delivery Method Room Air 08/25/25 10:02 BMI result Body Mass Index 27.9 GENERAL Well developed, Well nourished, in no apparent distress HEENT Head-Normocephalic Eyes- PERRLA, EOMI, Conjuctiva clear, lids WNL Ears- Canals clear, TMs WNL Mouth/Throat-No lesions, no erythema, no exudate Neck- Supple, No lymphadenopathy, thyroid WNL RESPIRATORY Normal I:E, Clear to auscultation CARDIOVASCULAR Regular, rate and rhythm, No murmurs or rubs GASTROINTESTINAL Soft, nontender, normal bowel sounds, no masses MUSCULOSKELETAL Back- nontender Joints- no swelling or deformity NEUROLOGICAL Gait normal PSYCHIATRIC Oriented to person, place and time Mood and affect WNL Appearance WNL Speech WNL Thought processes WNL Tobacco/Smoking Status: Tobacco use Status Tobacco use date assessed 08/25/25 08/25/25 10:03 Patient Tobacco Use Status Never used Tobacco 08/24/25 17:47 e-Cigarette/Vaping Use Never Used 08/24/25 17:47 PHQ-9: PHQ-9 Score PHQ-9: Total score 0 08/25/25 10:03 Depression Screening Interpretation: Negative Thrive Assessment: Date of Thrive Assessment Date Thrive assessed 08/25/25 08/25/25 10:10 Coding Level of Care Code Established Pt Est Pt Level 4 (34455) Patient Type Established Diagnoses Tinnitus of left ear H93.12 Sprain of left shoulder S43.402A Asthma J45.909 Cataracts, bilateral H26.9 Additional Codes PHQ-9 - 54670 - PHQ-9 Billing: Yes ([id number]) Time Spent (min) 30 Comment Time was spent on chart review, medication reconciliation, H&P, patient education, orders Assessment & Plan Assessment & Plan (1) Tinnitus of left ear: Code(s): H93.12 - Tinnitus, left ear Category: Medical Plan: The patient experienced hearing loss following a fall, resulting in white noise and echoing sounds in the ear. He underwent an MRI and hearing tests, which showed improvement. Continued monitoring and follow-up with an ENT specialist are recommended. (2) Sprain of left shoulder: Code(s): S43.402A - Unspecified sprain of left shoulder joint, initial encounter Category: Medical Plan: The patient reports shoulder pain following a fall, initially limiting arm mobility. Physical therapy has been beneficial, with gradual improvement in strength and mobility. Continued physical therapy and exercises are advised to maintain progress. Patient to follow up in 6 months or sooner if symptoms persist or worsen. (3) Asthma: Code(s): J45.909 - Unspecified asthma, uncomplicated Category: Medical Plan: The patient has a history of asthma, previously requiring emergency room visits and steroid treatment. Currently, he uses an albuterol inhaler as needed and has not experienced significant respiratory issues since mcc. Continued avoidance of respiratory irritants and regular follow-up are recommended. Patient to follow up in 6 months or sooner if symptoms persist or worsen. (4) Cataracts, bilateral: Code(s): H26.9 - Unspecified cataract Category: Medical Plan: The patient has cataracts, not severe enough to require surgery at this time. Regular ophthalmologic evaluations are recommended to monitor progression. Plan During the visit, we discussed the patient's hearing loss and the improvement noted in recent tests. I advised continued follow-up with the ENT specialist to monitor progress. For the shoulder pain, I recommended ongoing physical therapy to enhance mobility and strength. We also reviewed the patient's cataracts, which do not currently require surgical intervention, and emphasized the importance of regular eye exams. Regarding the migraines, I suggested avoiding caffeine and other known triggers. For asthma management, I advised maintaining the use of the albuterol inhaler as needed and avoiding respiratory irritants. We also planned for routine lab work to assess overall health status. Orders: Orders Comprehensive Met. Panel Today Z00.00 - Encounter for general adult medical examination without abnormal findings Patient Instructions: - Continue using the albuterol inhaler as needed for asthma. - Engage in regular physical therapy exercises to improve shoulder mobility. - Avoid caffeine and other known triggers to prevent migraines. - Schedule regular follow-up appointments with ENT and eye specialists. - Complete lab work as ordered to monitor health status.
[2025-08-25 10:02] VITALS: BP 124/76; PULSE 63; TEMP 36.4; O2SAT 98; BMI 27.9
== END 2025-08-25 10:49 | disposition home or self-care (01) ==
LOC: HO.HMCHD 10:00
PROVIDERS: PCP Internal Medicine; Visit Provider Physician Assistant Medical
DX: H93.12 Tinnitus, left ear (principal); S43.402A Unspecified sprain of left shoulder joint, initial encounter; J45.909 Unspecified asthma, uncomplicated; H26.9 Unspecified cataract